=== PATIENT | male | born 1945 | race Caucasian/White ===

== ENCOUNTER 2016-11-08 10:24 | Inpatient (IN) | payer MEDICARE, OTHER ==
[~2016-11-08] VITALS: Ht 175.3 cm; Wt 54.4 kg
[~2016-11-08 10:24] MED LIST: BUSPAR 5MG TABLE5 MG PO; CENTRUM SILVER1 EAC1 PO; CLARITIN 10MG T10 MG PO; ENSURE ORIGINA237 ML PO; FLOMAX 0.4 MG0.4 MG PO; IPRAT-ALBUT 0.5-3 ML INH; LEVAQUIN750 MG PO; LOPRESSOR 25 MG25 MG PO; MIRTAZAPINE30 MG PO; MUCINEX1200 MG PO; PREDNISONE10 MG PO; PROTONIX40 MG PO; PROVENTIL HFA 61 INH INH; SIMVASTATIN20 MG PO; SPIRIVA18 MCG INH; SYMBICORT 160-1 INHA INH; TRAZODONE HCL100 MG PO; TRIAMCINOLONE MC; ZANTAC 7575 MG PO
[2016-11-08 11:24] LABS: HEMOGLOBIN 10.3 gm/dl (14.0-17.5); RED BLOOD COUNT 3.41 M/UL (4.20-5.50)
[2016-11-08 11:54] LABS: BUN/CREATININE RATIO 13 (0-10)
[2016-11-08] MEDS ORDERED: TRAZODONE HCL100 MG PO (20:12)
[2016-11-08] MEDS ORDERED: FLOVENT DISKUS50 MCG INH (20:13)
[2016-11-08] MEDS ORDERED: COUMADIN2.5 MG PO (20:15)
[2016-11-08] MEDS ORDERED: HYDROXYZINE HCL25 MG PO (20:19)
[2016-11-09 06:12] LABS: HEMOGLOBIN 9.8 gm/dl (14.0-17.5); RED BLOOD COUNT 3.23 M/UL (4.20-5.50); WHITE BLOOD COUNT 10.1 K/UL (4.5-11.0)
[2016-11-09 06:46] LABS: BUN/CREATININE RATIO 11 (0-10)
[2016-11-10 05:34] LABS: HEMOGLOBIN 9.9 gm/dl (14.0-17.5); RED BLOOD COUNT 3.3 M/UL (4.20-5.50); WHITE BLOOD COUNT 10.4 K/UL (4.5-11.0)
[2016-11-10 05:49] LABS: BUN/CREATININE RATIO 9 (0-10)
[2016-11-13 06:18] LABS: RED BLOOD COUNT 3.37 M/UL (4.20-5.50); WHITE BLOOD COUNT 8.7 K/UL (4.5-11.0)
[2016-11-13 06:39] LABS: BUN/CREATININE RATIO 10 (0-10)
[2016-11-15 05:40] LABS: HEMOGLOBIN 10.4 gm/dl (14.0-17.5); RED BLOOD COUNT 3.47 M/UL (4.20-5.50)
[2016-11-15 05:54] LABS: BUN/CREATININE RATIO 14 (0-10)
[2016-11-15] MEDS ORDERED: AUGMENTIN 875-1 EACH PO (14:39)
[2016-11-15] MEDS ORDERED: [UNRECOGNIZED DRUG - OTHER] PO (14:40)
[2016-11-15] MEDS ORDERED: ASPIRIN81 MG PO (14:40)
[2016-11-15] MEDS ORDERED: MEGACE400 MG/10 PO (14:41)
[2016-11-15] MEDS ORDERED: SPIRIVA HANDIH18 MCG INH (14:43)
== END 2016-11-15 15:37 | disposition home or self-care (01) | DRG 190 ==
LOC: ER1 10:24 → ZEROF 16:09 → M/S 16:09
PROVIDERS: Emergency Medicine; Internal Medicine Pulmonary Disease; Physician Assistant; ADMIT Internal Medicine Infectious Disease
PROC: 5A09357 Assistance with Respiratory Ventilation, Less than 24 Consecutive Hours, Continuous Positive Airway Pressure (ICD-10-PCS; 2016-11-13)
PROC: 0B988ZX Drainage of Left Upper Lobe Bronchus, Via Natural or Artificial Opening Endoscopic, Diagnostic (ICD-10-PCS; principal; 2016-11-13 07:30)
DX: J44.0 Chronic obstructive pulmonary disease with (acute) lower respiratory infection (principal); J18.9 Pneumonia, unspecified organism; J96.12 Chronic respiratory failure with hypercapnia; J96.11 Chronic respiratory failure with hypoxia; E44.0 Moderate protein-calorie malnutrition; Z68.1 Body mass index [BMI] 19.9 or less, adult; I48.0 Paroxysmal atrial fibrillation; D64.9 Anemia, unspecified; I10 Essential (primary) hypertension; E78.5 Hyperlipidemia, unspecified; I27.2 Other secondary pulmonary hypertension; J98.4 Other disorders of lung; I07.1 Rheumatic tricuspid insufficiency; K21.9 Gastro-esophageal reflux disease without esophagitis; K27.9 Peptic ulcer, site unspecified, unspecified as acute or chronic, without hemorrhage or perforation; R74.8 Abnormal levels of other serum enzymes; R79.1 Abnormal coagulation profile; T45.515A Adverse effect of anticoagulants, initial encounter; I49.3 Ventricular premature depolarization; R00.0 Tachycardia, unspecified; G89.29 Other chronic pain; M25.50 Pain in unspecified joint; F17.210 Nicotine dependence, cigarettes, uncomplicated; R59.1 Generalized enlarged lymph nodes; R61 Generalized hyperhidrosis; G47.00 Insomnia, unspecified; F43.10 Post-traumatic stress disorder, unspecified; F41.9 Anxiety disorder, unspecified; Z87.01 Personal history of pneumonia (recurrent); Z86.73 Personal history of transient ischemic attack (TIA), and cerebral infarction without residual deficits; Z99.81 Dependence on supplemental oxygen; Z79.01 Long term (current) use of anticoagulants; Z79.51 Long term (current) use of inhaled steroids; Z79.899 Other long term (current) drug therapy; Z98.890 Other specified postprocedural states; Z82.3 Family history of stroke; Z80.9 Family history of malignant neoplasm, unspecified
CPT/HCPCS: ECHO; 36415; 36600; 71010; 71020; 71275; 80048; 80053; 80202; 81001; 82550; 82553; 82607; 82728; 82746; 82803; 82962; 83540; 83550; 83605; 83735; 83874; 83880; 84484; 85025; 85027; 85379; 85610; 85730; 86140; 87015; 87040; 87070; 87086; 87102; 87116; 87205; 87278; 93005; 93306; 94640; 94660; 94664; 96374; 96375; 99291; J0456; J0696; J1956; J2250; J2543; J3370; J7030; J7040; J7050; J7070; Q9965

== ENCOUNTER → 2016-12-18 | Outpatient (CLI) | payer OTHER ==
[~2016-12-18] MED LIST changes: +ASPIRIN81 MG PO; +AUGMENTIN 875-1 EACH PO; +COUMADIN2.5 MG PO; +FLOVENT DISKUS50 MCG INH; +HYDROXYZINE HCL25 MG PO; +MEGACE400 MG/10 PO; +SPIRIVA HANDIH18 MCG INH; +[UNRECOGNIZED DRUG - OTHER] PO
== END ==
LOC: HEART 5 10:22
DX: J44.9 Chronic obstructive pulmonary disease, unspecified (principal); J18.9 Pneumonia, unspecified organism
CPT/HCPCS: 71020-FX; 94060; 94729